=== PATIENT | male | born 1950 | race Caucasian/White ===

== ENCOUNTER 2017-03-20 10:30 | Outpatient (RCR) | payer MEDICARE, OTHER ==
[~2017-03-20 10:30] MED LIST: ASPIRIN 81M81 MG/TA2 PO; BACTRIM DS 8001 TAB PO; CEFTIN500 MG PO; CEPHALEXIN500 M1 PO; CIPRO 500MG TA500 MG PO; COZAAR 50MG50 MG/TAB PO; DAZIDOX10 MG PO; DIABETA 5MG5 MG/TAB PO; DUEXIS 26.6 MG-1 TAB PO; GLUCOPHAGE1000 MG PO; IBUPROFEN; IBUPROFEN-FAMOTIDINE; JANUMET 1000 MG1 TA1 PO; K-TAB20 PO; LEVEMIR FLEX100 U/ML SQ; LEVEMIR100 U/ML SQ; LIPITOR 40MG TA40 MG PO; MAG-OX 400400 MG/TAB PO; MICARDIS80 MG PO; MYRBETR25MG PO; MYRBETR50MG PO; NEURONTIN600 MG/TAB PO; NORCO 325 MG-51 TAB PO; NOVLOG SQ; NYAMYC100000 U/G TOP; PEPCID 20MG TAB20 MG PO; PERCOCET 325 MG1 TA2 PO; PRINCIPEN500 MG PO; TYLENOL 325MG325 MG PO; VESICARE10 MG PO; VFEND 200MG200 MG PO
[2017-03-27] MEDS ORDERED: CEFTIN 250250 MG/TAB PO (08:07)
[2017-03-27] MEDS ORDERED: ASPI325T6 PO (08:07)
[2017-03-27] MEDS ORDERED: NOVOLOG FLEX100 U/ML SQ (08:08)
[2017-03-27] MEDS ORDERED: NORCO 325 MG-51 TAB PO (08:09)
[2017-04-24] MEDS ORDERED: DUEXIS 26.6 MG-1 TAB PO (12:14)
[2017-04-24] MEDS ORDERED: NATURAL IRON65 MG PO (12:16)
[2017-04-30] MEDS ORDERED: ASPIRIN 81M81 MG/TA2 PO (13:44)
== END 2017-04-21 | disposition still patient (30) ==
LOC: WSPT
DX: G54.1 Lumbosacral plexus disorders (principal); R53.1 Weakness; Z92.3 Personal history of irradiation; Z93.6 Other artificial openings of urinary tract status; Z93.3 Colostomy status
CPT/HCPCS: G8978-GP; G8979-GP; G8980-GP

== ENCOUNTER 2017-03-24 19:03 | Inpatient (IN) | payer MEDICARE, OTHER ==
[~2017-03-24] VITALS: Ht 157.5 cm; Wt 87.8 kg
[2017-03-24] VITALS (53 sets, daily range): BP systolic 153; BP diastolic 73; PULSE 102; TEMP 98.4; O2SAT 95–98
[2017-03-24 20:10] LABS: BASO % 0.2 % (0.0-2.0); EOS # 0.1 (0.0-0.7); EOS % 0.6 % (0-4.0); GRAN # 10.6 (1.4-6.5); HEMATOCRIT 37.8 % (42.0-52.0); HEMOGLOBIN 12.6 g/dl (13.5-18.0); LYMPH # 0.7 (1.2-3.4); LYMPH % 5.4 % (20.0-51.0); MEAN CELL VOLUME 92 fl (80.0-100.0); MEAN CORPUSCULAR HEMOGLOBIN 31 pg (27.0-31.0); MEAN CORPUSCULAR HGB CONC 33 g/dl (33.0-37.0); MEAN PLATELET VOLUME 10.9 fl (7.4-10.4); MONO # 1.1 (0.1-0.6); MONO % 8.5 % (1.7-9.3); PLATELET COUNT 112 K/mm3 (130-400); RED BLOOD COUNT 4.09 M/mm3 (4.20-5.60); REDCELL DISTRIBUTION WIDTH-CV 13.2 % (11.5-14.5); WHITE BLOOD COUNT 12.4 K/mm3 (4.8-10.8)
[2017-03-24 20:16] LABS: ADJUSTED CALCIUM 9.1 mg/dL (8.4-10.2); ALBUMIN 3.9 gm/dL (3.5-5.0); BILIRUBIN,TOTAL 0.9 mg/dL (0.0-1.0); CREATININE, serum 1.02 mg/dL (0.66-1.25); POTASSIUM 4.1 mmol/L (3.4-5.0); TOTAL PROTEIN 7.2 gm/dL (6.4-8.2)
[2017-03-24 21:49] LABS: PH 6 (5-8); SQUAMOUS EPITHELIAL 0-2 /hpf; URINE APPEARANCE Hazy; URINE BACTERIA Rare /hpf; URINE BILIRUBIN Negative (NEGATIVE); URINE BLOOD 1+ (NEGATIVE); URINE COLOR Yellow; URINE GLUCOSE 3+ (NEGATIVE); URINE KETONE Trace (NEGATIVE); URINE UROBILINOGEN Negative (NEGATIVE)
[2017-03-24 21:51] LABS: URINE WBC 20-50 /hpf
[2017-03-25] VITALS (329 sets, daily range): BP systolic 116–147; BP diastolic 43–64; PULSE 56–95; TEMP 98–100.7; O2SAT 89–100
[2017-03-25 08:30] LABS: ADJUSTED CALCIUM 9.2 mg/dL (8.4-10.2); ALBUMIN 3.2 gm/dL (3.5-5.0); BILIRUBIN,TOTAL 0.7 mg/dL (0.0-1.0); CALCIUM 8.6 mg/dL (8.4-10.2); CREATININE, serum 0.96 mg/dL (0.66-1.25); POTASSIUM 3.7 mmol/L (3.4-5.0); TOTAL PROTEIN 6.3 gm/dL (6.4-8.2)
[2017-03-25 08:52] LABS: BASO # 0.1 (0.0-0.2); BASO % 0.4 % (0.0-2.0); EOS % 0.1 % (0-4.0); GRAN % 80.8 % (42.2-75.2); LYMPH # 1.1 (1.2-3.4); LYMPH % 8.8 % (20.0-51.0); MEAN CELL VOLUME 91 fl (80.0-100.0); MEAN CORPUSCULAR HGB CONC 34 g/dl (33.0-37.0); MEAN PLATELET VOLUME 9.6 fl (7.4-10.4); MONO # 1.2 (0.1-0.6); MONO % 9.6 % (1.7-9.3); PLATELET COUNT 137 K/mm3 (130-400); RED BLOOD COUNT 3.79 M/mm3 (4.20-5.60); REDCELL DISTRIBUTION WIDTH-CV 13.2 % (11.5-14.5); WHITE BLOOD COUNT 12.4 K/mm3 (4.8-10.8)
[2017-03-25 09:07] LABS: HEMATOCRIT 34.5 % (42.0-52.0); HEMOGLOBIN 11.6 g/dl (13.5-18.0); MEAN CORPUSCULAR HEMOGLOBIN 31 pg (27.0-31.0)
[2017-03-26 04:08] VITALS: BP 163/59; PULSE 68; TEMP 98.1
[2017-03-26 07:55] LABS: BASO % 0.5 % (0.0-2.0); EOS # 0.1 (0.0-0.7); EOS % 0.9 % (0-4.0); GRAN # 6.4 (1.4-6.5); GRAN % 75.2 % (42.2-75.2); HEMATOCRIT 35.7 % (42.0-52.0); HEMOGLOBIN 11.8 g/dl (13.5-18.0); LYMPH # 1.1 (1.2-3.4); LYMPH % 13.1 % (20.0-51.0); MEAN CELL VOLUME 93 fl (80.0-100.0); MEAN CORPUSCULAR HEMOGLOBIN 31 pg (27.0-31.0); MEAN CORPUSCULAR HGB CONC 33 g/dl (33.0-37.0); MEAN PLATELET VOLUME 9.5 fl (7.4-10.4); MONO # 0.8 (0.1-0.6); MONO % 9.9 % (1.7-9.3); PLATELET COUNT 134 K/mm3 (130-400); RED BLOOD COUNT 3.86 M/mm3 (4.20-5.60); REDCELL DISTRIBUTION WIDTH-CV 13.2 % (11.5-14.5); WHITE BLOOD COUNT 8.5 K/mm3 (4.8-10.8)
[2017-03-26 08:00] LABS: CREATININE, serum 0.89 mg/dL (0.66-1.25); POTASSIUM 4.1 mmol/L (3.4-5.0)
[2017-03-26 09:01] VITALS: BP 174/71; PULSE 62; TEMP 98
[2017-03-26 11:18] VITALS: BP 154/78; PULSE 69; TEMP 97.9
[2017-03-26 17:19] VITALS: BP 159/49; PULSE 61; TEMP 98.2
[2017-03-26 20:11] VITALS: BP 175/79; PULSE 65; TEMP 98.2
[2017-03-26 23:14] VITALS: BP 167/55; PULSE 59; TEMP 98.7
[2017-03-27 03:38] VITALS: BP 149/65; PULSE 62; TEMP 97.8
[2017-03-27 08:00] VITALS: BP 164/93; PULSE 61; TEMP 98.2
[2017-03-27] MEDS ORDERED: CEFTIN 250250 MG/TAB PO (08:07)
[2017-03-27] MEDS ORDERED: ASPI325T6 PO (08:07)
[2017-03-27] MEDS ORDERED: NOVOLOG FLEX100 U/ML SQ (08:08)
[2017-03-27] MEDS ORDERED: NORCO 325 MG-51 TAB PO (08:09)
[2017-03-27 08:12] LABS: CALCIUM 9.5 mg/dL (8.4-10.2); CREATININE, serum 0.87 mg/dL (0.66-1.25); POTASSIUM 3.9 mmol/L (3.4-5.0)
[2017-03-27 09:51] VITALS: BP 149/65; PULSE 62; TEMP 97.8
[2017-04-24] MEDS ORDERED: DUEXIS 26.6 MG-1 TAB PO (12:14)
[2017-04-24] MEDS ORDERED: NATURAL IRON65 MG PO (12:16)
[2017-04-30] MEDS ORDERED: ASPIRIN 81M81 MG/TA2 PO (13:44)
== END 2017-03-27 11:05 | DRG 871 ==
LOC: COL.ER 19:03 → ICU 21:54 → MEDICAL 21:54
PROVIDERS: Family Medicine; Internal Medicine; Nurse Practitioner Family
DX: A41.51 Sepsis due to Escherichia coli [E. coli] (principal); I21.4 Non-ST elevation (NSTEMI) myocardial infarction; N39.0 Urinary tract infection, site not specified; E87.2 Acidosis; B96.20 Unspecified Escherichia coli [E. coli] as the cause of diseases classified elsewhere; Z93.3 Colostomy status; I10 Essential (primary) hypertension; E11.9 Type 2 diabetes mellitus without complications; Z85.46 Personal history of malignant neoplasm of prostate; Z87.891 Personal history of nicotine dependence
CPT/HCPCS: 99223-AI; 99232-AI; 99233-AI; 99239; J0696; J1650; J1815; J7030

== ENCOUNTER → 2017-04-02 | Outpatient (REF) ==
[~2017-04-02] MED LIST changes: +ASPI325T6 PO; +CEFTIN 250250 MG/TAB PO; +HUMALOG100 U/ML SQ; +NATURAL IRON65 MG PO; +NOVOLOG FLEX100 U/ML SQ
[2017-04-02 15:59] LABS: CALCIUM 9.7 mg/dL (8.4-10.2); CREATININE, serum 1.17 mg/dL (0.66-1.25); POTASSIUM 4.9 mmol/L (3.4-5.0)
== END ==
LOC: ZCOL.LAB 14:43
PROVIDERS: Nurse Practitioner
DX: Z01.89 Encounter for other specified special examinations (principal)

== ENCOUNTER → 2017-04-28 | Outpatient (CLI) | payer MEDICARE, OTHER ==
[~2017-04-28] VITALS: Ht 157.5 cm; Wt 84.1 kg
[2017-04-28 08:13] VITALS: BP 136/79; PULSE 67
[2017-04-28 09:00] VITALS: BP 114/61; BP 114/91; PULSE 60; PULSE 62
[2017-04-28 09:15] VITALS: BP 114/49; PULSE 58
[2017-04-28 09:30] VITALS: BP 122/48; PULSE 59
[2017-04-28 09:45] VITALS: BP 109/49; PULSE 62
[2017-04-28 10:04] VITALS: BP 115/80; PULSE 59
== END ==
LOC: COL.RAD 07:50
DX: G31.89 Other specified degenerative diseases of nervous system (principal)
CPT/HCPCS: A9548; Q9965

== ENCOUNTER 2017-05-05 08:21 | Outpatient (CLI) | payer MEDICARE, OTHER ==
[~2017-05-05] VITALS: Ht 157.5 cm; Wt 83.9 kg
[~2017-05-05 08:21] MED LIST changes: -HUMALOG100 U/ML SQ
[2017-05-05] MEDS ORDERED: HUMALOG100 U/ML SQ (08:34)
[2017-05-05 08:39] VITALS: BP 136/70; PULSE 70
[2017-05-05 09:30] VITALS: BP 142/73; PULSE 63; PULSE 68
[2017-05-05 09:45] VITALS: BP 135/69; PULSE 67
[2017-05-05 10:00] VITALS: BP 124/84; PULSE 67
[2017-05-05 10:15] VITALS: BP 115/90; PULSE 65
[2017-05-05 10:30] VITALS: BP 105/48; PULSE 64
== END 2017-05-05 11:18 | disposition home or self-care (01) ==
LOC: COL.RAD 08:21
DX: G31.89 Other specified degenerative diseases of nervous system (principal); R27.0 Ataxia, unspecified